=== PATIENT | male | born 1995 | race Caucasian/White ===

== ENCOUNTER 2016-10-01 23:03 | Emergency (ER) | payer OTHER ==
[~2016-10-01] VITALS: Ht 180.3 cm; Wt 113.4 kg
[~2016-10-01 23:03] MED LIST: AVPAK AZITHROM250 MG PO; KEFLEX 500MG.500 MG PO
--- OUTSIDE RECORDS SUMMARY | 2016-10-01 23:21 | External Medical Summary Rpt ---
Author Author NIURKAJIM Preciado, [employer] Organization [employer] Address Unknown Phone Unavailable Results EK EKG 12 LEAD Observa Value Referen Units Interpr Notes Date tion ce etation Range Sinus No No No No Apr 25 arrhyth informa informa informa informa 2014 froylan\.br tion in tion in tion in tion in 11:49 \\.br\N source source source source PM ormal data data data data ECG XR KNEE LEFT AP LATERAL INTERNAL AND EXTERNAL OBLIQUES Observa Value Referen Units Interpr Notes Date tion ce etation Range TEXT XR KNEE No No No No Nov 20 DIAGNOS LEFT informa informa informa informa 2011 IS AP tion in tion in tion in tion in 9:47 PM BATTERY LATERAL source source source source data data data data INTERNA L AND EXTERNA L OBLIQUE S Nov 21, 201109: 54:11 PMHISTO RY: -LEG INJURYF aj views were taken.C omparis on is made to the previou s exam of June 02, 2009.No fractur e, joint effusio n or other signifi cant abnorma lity is seen.IM PRESSIO N: Normal left knee. XR TIBIA FIBULA RIGHT AP AND LATERAL Observa Value Referen Units Interpr Notes Date tion ce etation Range TEXT XR No No No No Nov 20 DIAGNOS TIBIA informa informa informa informa 2011 IS FIBULA tion in tion in tion in tion in 9:47 PM BATTERY RIGHT source source source source AP AND data data data data LATERAL Nov 21, 2011 09:47:3 1 PMHISTO RY: -LEG INJURYT wo views were taken.N o fractur e or other signifi cant abnorma lity is seen.IM PRESSIO N: Normal right tibia and fibula. XR ANKLE RIGHT AP LATERAL AND OBLIQUE Observa Value Referen Units Interpr Notes Date tion ce etation Range TEXT XR No No No No Nov 20 DIAGNOS ANKLE informa informa informa informa 2012 IS RIGHT tion in tion in tion in tion in 9:47 PM BATTERY AP source source source source LATERAL data data data data AND OBLIQUE Nov 21, 2011 09:47:3 1 PMHISTO RY: -LEG INJURYT hree views were taken.N o fractur e or other signifi cant abnorma lity is seen.IM PRESSIO N: Normal right ankle.
--- OUTSIDE RECORDS SUMMARY | 2016-10-01 23:21 | External Medical Summary Rpt ---
Author Author , BAKARI VILLEGAS Address Unknown Phone [email or web address] Care Team Providers Care Stonemason Helper Name Role Phone [facility] # [id number], Unavailable Unavailable [facility] # [id number] [facility] Unavailable Unavailable [facility], [facility] Un[facility] TY VIRIDIANA, TY Unavailable Unavailable VIRIDIANA TY VIRIDIANA, TY Unavailable Unavailable VIRIDIANA LOVE, JOYCELYN A, Unavailable Unavailable LOVE JOYCELYN A SERGIO R H, Unavailable Unavailable SERGIO R H SERGIO R H, Unavailable Unavailable SERGIO R Lisbeth SCOTT, Unavailable Unavailable Lisbeth HILL Purpose Continuity of Care Document - 05-20-2009 through 2016 Problems Code Diagnosis DOS Provider Status 39335 UNSPECIFIED 12-20-2011 SERGIO R ACUTE H NONSUPPURAT [facility]IT[facility] MEDIA 45386 UNSPECIFIED 08-09-2011 TY VIRIDIANA ASTIGMATISM 7241 PAIN IN 06-17-2011 [facility] 7248 OTHER 06-17-2011 [facility] TO BACK 8470 NECK SPRAIN 06-17-2011 [facility] 13250 UNSPECIFIED 05-19-2011 SERGIO R INFECTIVE H OTITIS EXTERNA 1129 CANDIDIASIS 02-10-2011 SERGIO R OF H UNSPECIFIED SITE 3829 UNSPECIFIED 02-08-2011 SERGIO R OTITIS H MEDIA 6929 CONTACT 04-27-2010 [facility] OTHER [place] DUE UNSPEC CAUSE 460 ACUTE 04-12-2010 [facility] ITIS 0088 INTESTINAL 12-17-2009 [facility] DUE TO OTHER ORGANISM NEC 4619 ACUTE 10-21-2009 [facility] UNSPECIFIED V202 ROUTINE 10-06-2009 [facility] INF[facility] CHILD HEALTH CHECK 8408 SPRAIN&STRA 06-02-2009 EMERGENCY IN OTH SPEC CARE PHYS SITES [facility] SHOULDER&UP PER ARM 9160 HIP THI 06-02-2009 EMERGENCY LEG&ANK CARE PHYS ABRASION/FR [facility] ICION BURN W/O INF 24727 CONTUSION 06-02-2009 EMERGENCY OF KNEE CARE PHYS [facility] V714 OBSERVATION 06-02-2009 EMERGENCY FOLLOWING CARE PHYS OTHER [facility] ACCIDENT Medications Na ND Rx Da Fi Fi Am Da Di Ph RX Ph St me C No te ll ll ou ys ag ar # ys at rm s nt no ma ic us Or Da si cy ia de te s n re d ME 59 02 02 0 21 6 CV 56 CO Ac TH 74 -2 -2 .0 S 17 OP ti YL 60 2- 2- 00 PH 68 ER ve TX 00 20 20 AR ED 10 11 11 MA ZULLY NI 3 CY HN SO # G LO NE 05 4 43 7 MG DO SE PK CE 68 02 02 0 20 10 CV 55 CO Ac FD 18 -0 -0 .0 S 98 OP ti IN 00 7- 7- 00 PH 47 ER ve IR 71 20 20 AR 16 11 11 MA ZULLY 30 0 CY HN 0 # G MG 05 CA 43 PS 7 UL E 59 08 08 0 10 10 CV 54 KE Ac 76 -1 -1 .0 S 08 AG ti 22 8- 8- 00 PH 42 LE ve 18 20 20 AR 00 10 10 MA RI 1 CY TA # K 05 43 7 CI 13 05 08 5 15 30 CV 53 CO Ac TA 66 -0 -1 .0 S 01 OP ti LO 80 4- 8- 00 PH 97 ER ve TX 01 20 20 AR AM 10 10 10 MA ZULLY 5 CY HN HB # G R 40 05 43 MG 7 TA BL ET 59 06 06 0 20 10 CV 53 KE Ac 76 -1 -1 .0 S 45 AG ti 22 5- 5- 00 PH 16 LE ve 18 20 20 AR 00 10 10 MA RI 1 CY TA # K 05 43 7 CI 00 05 05 5 15 30 CV 53 CO Ac TA 90 -0 -0 .0 S 01 OP ti LO 46 4- 4- 00 PH 97 ER ve TX 08 20 20 AR AM 66 10 10 MA ZULLY 1 CY HN HB # G R 40 05 43 MG 7 TA BL ET CI 13 04 04 2 15 30 CV 52 KE Ac TA 66 -0 -0 .0 S 72 AG ti LO 80 6- 6- 00 PH 66 LE ve TX 01 20 20 AR AM 00 10 10 MA RI 5 CY TA HB # K R 20 05 43 MG 7 TA BL ET Procedures Procedure DOS Code Location Performer Comment DETERMINA 30962 TY TY TION 2 Sep REFRACTIV E STATE OPHTH 36079 [facility] 2 Sep XM&EVAL COMPRE NEW PT 1/> [place] [address] [facility] 1/> AREAS 2 [facility]OP[facility] EACH 15 TIC TIC MIN CENTER CENTER NEUROMUSC REEDUCA CHIROPRAC 80978 [facility] TIC 2 CH[facility]AC CHIROPRAC MANIPULAT TIC TIC [facility] CENTER SPINAL 3-4 REGIONS APPL 88820 [facility] MODALITY 2 CH[facility]OP[facility] CHIROP[facility]AC 1/> AREAS TIC TIC ELEC CENTER CENTER STIMJ UNATTENDE D APPL 40669 [facility] MODALITY 2 CH[facility]OP[facility]AC CHIROPRAC 1/> AREAS TIC TIC ELEC CENTER CENTER STIMJ UNATTENDE D CHIROPRAC 94281 [facility] TIC 2 CHIROPRAC CHIROPRAC MANIPULAT TIC TIC [facility] CENTER SPINAL 3-[place] [address] [facility] 1/> AREAS 2 CHIROPRAC CHIROPRAC EACH 15 TIC TIC MIN CENTER CENTER NEUROMUSC REEDUCA APPLICATI 40668 [facility] ON 2 [facility]OP[facility] MODALITY TIC TIC 1/> AREAS CENTER CENTER HOT/COLD PACKS URNLS DIP 53388 SERGIO SERGIO 1 R H R H STICK/TAB LET RGNT NON-AUTO W/O MICRSCP BLOOD 41955 FAMILY SERGIO COUNT 0 CARE R H COMPLETE ASSOCIATE AUTO&AUTO S DIFRNTL WBC Encounters Encounter Start End Date Code Location Performer Type Date OFFICE 12226 SERGIO SERGIO OUTPATIEN 2 2 R H R H T VISIT 15 MINUTES OFFICE 10179 [facility] 2 2 [facility]OP[facility] T NEW 30 TIC MINUTES CENTER OFFICE 24015 SERGIO SERGIO OUTPATIEN 2 2 R H R H T VISIT 15 MINUTES OFFICE 33386 SERGIO SERGIO OUTPATIEN 1 1 R H R H T VISIT 15 MINUTES OFFICE 29714 SERGIO SERGIO OUTPATIEN 1 1 R H R H T VISIT 15 MINUTES OFFICE 54674 [facility] SERGIO OUTPATIEN 1 1 CARE R H T VISIT ASSOCIATE 15 S MINUTES OFFICE 32896 [facility] SERGIO OUTPATIEN 1 1 CARE R H T VISIT ASSOCIATE 15 S MINUTES OFFICE 14832 FAMILY OUTPATIEN 0 0 CARE T VISIT ASSOCIATE 15 S MINUTES OFFICE 60497 FAMILY SERGIO OUTPATIEN 0 0 CARE R H T VISIT ASSOCIATE 15 S MINUTES PERIODIC 95891 FAMILY SER[facility]IO PREVENTIV 0 0 CARE R H E MED EST ASSOCIATE PATIENT S EMERGENCY 79556 EMERGENCY LOVE, 0 0 CARE JOYCELYN FRANCOISMEN PHYS T VISIT [facility] [place] SEVERITY OFFICE 81378 FAMILY SERGIO, OUTPATIEN 0 0 CARE R KATHERINE T VISIT ASSOCIATE 15 S MINUTES
--- OUTSIDE RECORDS SUMMARY | 2016-10-01 23:21 | External Medical Summary Rpt ---
Demographics Preferred Language Maltese Marital Status Unknown Anabaptist Affiliation Unknown Race Unknown Ethnic Group Unknown Author Author , BAKARI VILLEGAS Address Unknown Phone Immunization Unable to retrieve immunization data due to connection failure with Immunization Registry. Please try again later.
--- OUTSIDE RECORDS SUMMARY | 2016-10-01 23:21 | External Medical Summary Rpt ---
Author Author , BAKARI VILLEGAS Address Unknown Phone [email or web address] Care Team Providers Care Charge Entry Name Role Phone [facility] # [id number], Unavailable Unavailable [facility] # [id number] [facility] Unavailable Unavailable CENTER, [facility] Unavailable Unavailable [facility], [facility] [...] 2016 Problems Code Diagnosis DOS Provider Status 73757 UNSPECIFIED 12-20-2011 SERGIO R ACUTE H NONSUPPURAT [facility] OTITIS MEDIA 74728 UNSPECIFIED 08-09-2011 TY VIRIDIANA ASTIGMATISM 7241 PAIN IN 06-17-2011 [facility] 7248 OTHER 06-17-2011 [facility] TO BACK 8470 NECK SPRAIN 06-17-2011 [facility] 94118 UNSPECIFIED 05-19-2011 SERGIO R INFECTIVE H OTITIS [...] EMERGENCY IN OTH SPEC CARE PHYS SITES [facility] SHOULDER&UP PER ARM 9160 HIP THI 06-02-2009 EMERGENCY LEG&ANK CARE PHYS ABRASION/FR [facility] ICION BURN W/O INF 47164 CONTUSION 06-02-2009 EMERGENCY OF KNEE CARE PHYS [facility] V714 OBSERVATION 06-02-2009 EMERGENCY FOLLOWING CARE PHYS OTHER [facility] ACCIDENT Medications Na ND Rx Da [...] 2- 2- 00 PH 68 ER ve NC 00 20 20 AR ED 10 11 [...] 4- 8- 00 PH 97 ER ve NC 01 20 20 AR AM 10 10 [...] 4- 4- 00 PH 97 ER ve NC 08 20 20 AR AM 66 10 10 MA ZULLY 1 CY HN HB # G R 40 05 43 MG 7 TA BL ET CI 13 04 04 2 15 30 CV 52 KE Ac TA 66 -0 -0 .0 S 72 AG ti LO 80 6- 6- 00 PH 66 LE ve NC 01 20 20 AR AM 00 10 10 MA RI 5 CY TA HB # K R 20 05 43 MG 7 TA BL ET Procedures Procedure DOS Code Location Performer Comment DETERMINA 64096 TY TY TION 2 Sep REFRACTIV E STATE OPHTH 18140 TY TY MEDICAL 2 Sep XM&EVAL COMPRE NEW PT 1/> [place] [address] [facility] 1/> AREAS 2 CHIROPRAC CHIROPRAC EACH 15 TIC TIC MIN CENTER CENTER NEUROMUSC REEDUCA CHIROPRAC 97965 [facility] TIC 2 CHIROPRAC CHIROPRAC MANIPULAT TIC TIC [facility] CENTER SPINAL 3-4 REGIONS APPL 30824 [facility] MODALITY 2 [facility]AC 1/> AREAS TIC TIC ELEC CENTER CENTER STIMJ UNATTENDE D APPL 12081 [facility] MODALITY 2 CH[facility]OP[facility]AC CH[facility]OP[facility]AC 1/> AREAS TIC TIC ELEC CENTER CENTER STIMJ UNATTENDE D CHIROPRAC 90131 [facility] TIC 2 CHIROPRAC CHIROPRAC MANIPULAT TIC TIC [facility] CENTER SPINAL 3-[place] [address] [facility] 1/> AREAS 2 CHIROPRAC CHIROPRAC EACH 15 TIC TIC MIN CENTER CENTER NEUROMUSC REEDUCA APPLICATI 11550 [facility] ON 2 CHIROPRAC CHIROPRAC MODALITY TIC TIC 1/> AREAS CENTER CENTER HOT/COLD PACKS URNLS DIP 89400 SERGIO SERGIO 1 R H R H STICK/TAB LET RGNT NON-AUTO W/O MICRSCP BLOOD 05545 FAMILY SERGIO COUNT 0 CARE R H COMPLETE ASSOCIATE AUTO&AUTO S DIFRNTL WBC Encounters Encounter Start End Date Code Location Performer Type Date OFFICE 01509 SERGIO SERGIO OUTPATIEN 2 2 R H R H T VISIT 15 MINUTES OFFICE 27927 [facility] 2 2 [facility] T NEW 30 TIC MINUTES CENTER OFFICE 31401 SERGIO SERGIO OUTPATIEN 2 2 R H R H T VISIT 15 MINUTES OFFICE 38264 SER[facility] SERGIO OUTPATIEN 1 1 R H R H T VISIT 15 MINUTES OFFICE 42172 SERGIO SERGIO OUTPATIEN 1 1 R H R H T VISIT 15 MINUTES OFFICE 22842 [facility] SER[facility]IO OUTPATIEN 1 1 CARE R H T VISIT ASSOCIATE 15 S MINUTES OFFICE 66956 FAMILY SERGIO OUTPATIEN 1 1 CARE R H T VISIT ASSOCIATE 15 S MINUTES OFFICE 10265 FAMILY OUTPATIEN 0 0 CARE T VISIT ASSOCIATE 15 S MINUTES OFFICE 42377 FAMILY SERGIO OUTPATIEN 0 0 CARE R H T VISIT ASSOCIATE 15 S MINUTES PERIODIC 43854 FAMILY SER[facility]IO PREVENTIV 0 0 CARE R H E MED EST ASSOCIATE PATIENT S EMERGENCY 73825 EMERGENCY LOVE, 0 0 CARE JOYCELYN FRANCOISMEN PHYS T VISIT [facility] [place] SEVERITY OFFICE 75083 FAMILY SERGIO, OUTPATIEN 0 0 CARE R KATHERINE T VISIT ASSOCIATE 15 S MINUTES
--- OUTSIDE RECORDS SUMMARY | 2016-10-01 23:21 | External Medical Summary Rpt ---
Author Author , BAKARI VILLEGAS Address Unknown Phone [email or web address] Care Team Providers Care Dining Room Supervisor Name Role Phone [facility] # [id number], Unavailable Unavailable [facility] # [id number] [facility] Unavailable Unavailable CENTER, [facility] Unavailable [facility], [facility] TY VIRIDIANA, TY Unavailable Unavailable VIRIDIANA TY VIRIDIANA, TY Unavailable Unavailable VIRIDIANA LOVE, JOYCELYN A, Unavailable Unavailable LOVE, JOYCELYN A SERGIO R H, Unavailable Unavailable SERGIO R H SERGIO R H, Unavailable Unavailable SERGIO R Lisbeth SCOTT, Unavailable Unavailable Lisbeth HILL Purpose Continuity of Care Document - 05-20-2009 through 2016 Problems Code Diagnosis DOS Provider Status 37383 UNSPECIFIED 12-20-2011 SERGIO R ACUTE H NONSUPPURAT [facility] OTITIS MEDIA 50483 UNSPECIFIED 08-09-2011 TY VIRIDIANA ASTIGMATISM 7241 PAIN IN 06-17-2011 [facility] 7248 OTHER 06-17-2011 [facility] TO BACK 8470 NECK SPRAIN 06-17-2011 [facility] 07709 UNSPECIFIED 05-19-2011 SERGIO R INFECTIVE H OTITIS EXTERNA 1129 CANDIDIASIS 02-10-2011 SERGIO R OF H UNSPECIFIED SITE 3829 UNSPECIFIED 02-08-2011 SERGIO R OTITIS H MEDIA 6929 CONTACT 04-27-2010 [facility] OTHER [place] DUE UNSPEC CAUSE 460 ACUTE 04-12-2010 [facility] NASOPHARYNG ASS[facility] ITIS 0088 INTESTINAL 12-17-2009 [facility] INFECTION [facility] DUE TO OTHER ORGANISM NEC 4619 ACUTE 10-21-2009 [facility]US[facility]IS[facility] UNSPECIFIED V202 ROUTINE 10-06-2009 [facility] OR [facility] CHILD HEALTH CHECK 8408 SPRAIN&STRA 06-02-2009 EMERGENCY IN OTH SPEC CARE PHYS SITES [facility] SHOULDER&UP PER ARM 9160 HIP THI 06-02-2009 EMERGENCY LEG&ANK CARE PHYS ABRASION/FR [facility] ICION BURN W/O INF 12452 CONTUSION 06-02-2009 EMERGENCY OF KNEE CARE PHYS [facility] V714 OBSERVATION 06-02-2009 EMERGENCY FOLLOWING CARE PHYS OTHER [facility] ACCIDENT Medications Na ND Rx Da [...] 2- 2- 00 PH [address] 00 20 20 AR ED 10 11 11 MA ZULYL NI 3 CY HN SO # G [...] 4- 8- 00 PH [address] 01 20 20 AR AM 10 10 [...] 4- 4- 00 PH [address] 08 20 20 AR AM 66 10 10 MA ZULLY 1 CY HN HB # G R 40 05 43 MG 7 TA BL ET CI 13 04 04 2 15 30 CV 52 KE Ac TA 66 -0 -0 .0 S 72 AG ti LO 80 6- 6- 00 PH [address] 01 20 20 AR AM 00 10 10 MA RI 5 CY TA HB # K R 20 05 43 MG 7 TA BL ET Procedures Procedure DOS Code Location Performer Comment OPH 71661 TY TY MEDICAL 2 Sep XM&EVAL COMPRE NEW PT 1/> VST [place] 00120 TY TY TION 2 Sep REFRACTIV E STATE APPL 88339 [facility] MODALITY 2 CHIROPRAC CHIROPRAC 1/> AREAS TIC TIC ELEC CENTER [place] [address] [facility] 1/> AREAS 2 CHIROPRAC CHIROPRAC EACH 15 TIC TIC MIN CENTER CENTER NEUROMUSC REEDUCA CHIROPRAC 74705 [facility] TIC 2 CHIROPRAC CHIROPRAC MANIPULAT TIC TIC [facility] C[facility] SPINAL 3-4 [facility] APPL 31636 [facility] MODALITY 2 CH[facility]OPRAC CHIROPRAC 1/> AREAS TIC TIC ELEC CENTER [place] [address] [facility] 1/> AREAS 2 CHIROPRAC CHIROPRAC EACH 15 TIC TIC MIN CENTER CENTER NEUROMUSC REEDUCA APPLICATI 86138 [facility] ON 2 CHIROPRAC CHIROPRAC MODALITY TIC TIC 1/> AREAS CENTER CENTER HOT/COLD PACKS CHIROPRAC 26148 [facility] TIC 2 CHIROPRAC CHIROPRAC MANIPULAT TIC TIC [facility] CENTER SPINAL 3-4 [facility] URNLS DIP 00930 SERGIO SERGIO 1 R H R H STICK/TAB LET RGNT NON-AUTO W/O MICRSCP BLOOD 07698 FAMILY SERGIO COUNT 0 CARE R H COMPLETE ASSOCIATE AUTO&AUTO S DIFRNTL WBC Encounters Encounter Start End Date Code Location Performer Type Date OFFICE 14032 SERGIO SERGIO OUTPATIEN 2 2 R H R H T VISIT 15 MINUTES OFFICE 27068 [facility] 2 2 CHIROPRAC T NEW 30 TIC MINUTES CENTER OFFICE 38325 SERGIO SERGIO OUTPATIEN 2 2 R H R H T VISIT 15 MINUTES OFFICE 16789 SERGIO SERGIO OUTPATIEN 1 1 R H R H T VISIT 15 MINUTES OFFICE 63048 SERGIO SERGIO OUTPATIEN 1 1 R H R H T VISIT 15 MINUTES OFFICE 66754 [facility]ILY SERGIO OUTPATIEN 1 1 CARE R H T VISIT ASSOCIATE 15 S MINUTES OFFICE 68125 FAMILY SERGIO OUTPATIEN 1 1 CARE R H T VISIT ASSOCIATE 15 S MINUTES OFFICE 42629 FAMILY OUTPATIEN 0 0 CARE T VISIT ASSOCIATE 15 S MINUTES OFFICE 84775 FAMILY SERGIO OUTPATIEN 0 0 CARE R H T VISIT ASSOCIATE 15 S MINUTES PERIODIC 55900 FAMILY SERGIO PREVENTIV 0 0 CARE R H E MED EST ASSOCIATE PATIENT S EMERGENCY 02796 EMERGENCY LOVE, 0 0 CARE JOYCELYN A DEPARTMEN PHYS T VISIT [facility] [place] SEVERITY OFFICE 76278 FAMILY SERGIO, OUTPATIEN 0 0 CARE R KATHERINE T VISIT ASSOCIATE 15 S MINUTES
--- OUTSIDE RECORDS SUMMARY | 2016-10-01 23:21 | External Medical Summary Rpt ---
Author Author , BAKARI VILLEGAS Address Unknown Phone [email or web address] Care Team Providers Care Gear Nicker Name Role Phone [facility] # [id number], Unavailable Unavailable [facility] # 96408 [facility] Unavailable Unavailable CENTER, [facility] Unavailable Unavailable ASSOC[facility], [facility] [...] 2016 Problems Code Diagnosis DOS Provider Status 14422 UNSPECIFIED 12-20-2011 SERGIO R ACUTE H NONSUPPURAT [facility] OTITIS MEDIA 51117 UNSPECIFIED 08-09-2011 TY VIRIDIANA ASTIGMATISM 7241 PAIN IN 06-17-2011 [facility] 7248 OTHER 06-17-2011 [facility] TO BACK 8470 NECK SPRAIN 06-17-2011 [facility] 27584 UNSPECIFIED 05-19-2011 SERGIO R INFECTIVE H OTITIS EXTERNA 1129 CANDIDIASIS 02-10-2011 SERGIO R OF H UNSPECIFIED SITE 3829 UNSPECIFIED 02-08-2011 SERGIO R OTITIS H MEDIA 6929 CONTACT 04-27-2010 [facility] OTHER [place] DUE UNSPEC CAUSE 460 ACUTE 04-12-2010 [facility] NASOPHARYNG ASS[facility] ITIS 0088 INTESTINAL 12-17-2009 [facility]FE[facility] DUE TO OTHER ORGANISM NEC 4619 ACUTE 10-21-2009 [facility]US[facility] UNSPECIFIED V202 ROUTINE 10-06-2009 [facility] CHILD HEALTH CHECK 8408 SPRAIN&STRA 06-02-2009 EMERGENCY IN OTH SPEC CARE PHYS SITES [facility] SHOULDER&UP PER ARM 9160 HIP THI 06-02-2009 EMERGENCY LEG&ANK CARE PHYS ABRASION/FR [facility] ICION BURN W/O INF 95308 CONTUSION 06-02-2009 EMERGENCY OF KNEE CARE PHYS [facility] V714 OBSERVATION 06-02-2009 EMERGENCY FOLLOWING CARE PHYS OTHER [facility] ACCIDENT Medications Na ND Rx Da Fi [...] 2- 2- 00 PH 68 ER ve CO 00 20 20 AR ED 10 11 [...] 4- 8- 00 PH 97 ER ve CO 01 20 20 AR AM 10 10 [...] 4- 4- 00 PH 97 ER ve CO 08 20 20 AR AM 66 10 10 MA ZULLY 1 CY HN HB # G R 40 05 43 MG 7 TA BL ET CI 13 04 04 2 15 30 CV 52 KE Ac TA 66 -0 -0 .0 S 72 AG ti LO 80 6- 6- 00 PH 66 LE ve CO 01 20 20 AR AM 00 10 10 MA RI 5 CY TA HB # K R 20 05 43 MG 7 TA BL ET Procedures Procedure DOS Code Location Performer Comment OPH 82218 TY TY MEDICAL 2 Sep XM&EVAL COMPRE NEW PT 1/> VST [place] 75530 TY TY TION 2 Sep REFRACTIV E STATE APPL 25716 [facility] MODALITY 2 CHIROPRAC CHIROPRAC 1/> AREAS TIC TIC ELEC CENTER [place] [address] [facility] 1/> AREAS 2 CHIROPRAC CHIROPRAC EACH 15 TIC TIC MIN CENTER CENTER NEUROMUSC REEDUCA CHIROPRAC 38990 [facility] TIC 2 CHIROPRAC CHIROPRAC MANIPULAT TIC TIC [facility] CENTER SPINAL 3-4 REGIONS APPL 17305 [facility] MODALITY 2 CHIROPRAC CHIROPRAC 1/> AREAS TIC TIC ELEC C[place] [address] [facility] 1/> AREAS 2 CHIROPRAC CHIROPRAC EACH 15 TIC TIC MIN CENTER CENTER NEUROMUSC REEDUCA APPLICATI 98838 [facility] ON 2 CHIROPRAC CHIROPRAC MODALITY TIC TIC 1/> AREAS CENTER CENTER HOT/COLD PACKS CHIROPRAC 43088 [facility] TIC 2 CHIROPRAC CHIROPRAC MANIPULAT TIC TIC [facility] CENTER SPINAL 3-4 [facility] URNLS DIP 97601 SERGIO SERGIO 1 R H R H STICK/TAB LET RGNT NON-AUTO W/O MICRSCP BLOOD 11154 FAMILY SERGIO COUNT 0 CARE R H COMPLETE ASSOCIATE AUTO&AUTO S DIFRNTL WBC Encounters Encounter Start End Date Code Location Performer Type Date OFFICE 27078 SERGIO SERGIO OUTPATIEN 2 2 R H R H T VISIT 15 MINUTES OFFICE 27994 [facility] 2 2 CHIROPRAC T NEW 30 TIC MINUTES CENTER OFFICE 96583 SERGIO SERGIO OUTPATIEN 2 2 R H R H T VISIT 15 MINUTES OFFICE 92978 [facility] SERGIO OUTPATIEN 1 1 R H R H T VISIT 15 MINUTES OFFICE 30417 SERGIO SERGIO OUTPATIEN 1 1 R H R H T VISIT 15 MINUTES OFFICE 85726 [facility]ILY SERGIO OUTPATIEN 1 1 CARE R H T VISIT ASSOCIATE 15 S MINUTES OFFICE 88574 [facility] SERGIO OUTPATIEN 1 1 CARE R H T VISIT ASSOCIATE 15 S MINUTES OFFICE 01039 FAMILY OUTPATIEN 0 0 CARE T VISIT ASSOCIATE 15 S MINUTES OFFICE 61480 FAMILY SERGIO OUTPATIEN 0 0 CARE R H T VISIT ASSOCIATE 15 S MINUTES PERIODIC 72927 FAMILY SERGIO PREVENTIV 0 0 CARE R H E MED EST ASSOCIATE PATIENT S EMERGENCY 17698 EMERGENCY LOVE, 0 0 CARE JOYCELYN A DEPARTMEN PHYS T VISIT [facility] [place] SEVERITY OFFICE 46259 FAMILY SERGIO, OUTPATIEN 0 0 CARE R KATHERINE T VISIT ASSOCIATE 15 S MINUTES
--- OUTSIDE RECORDS SUMMARY | 2016-10-01 23:21 | External Medical Summary Rpt ---
Demographics Preferred Language Vietnamese Marital Status Unknown Shinto Affiliation Unknown Race Unknown Ethnic Group Unknown Author Author , BAKARI VILLEGAS Address Unknown Phone Immunization Unable to retrieve immunization data due to connection failure with Immunization Registry. Please try again later.
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
[2016-10-02 00:44] VITALS: BP 153/79
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
== END 2016-10-02 00:44 | disposition home or self-care (01) ==
LOC: ER 23:03
DX: S70.12XA Contusion of left thigh, initial encounter (principal); S39.012A Strain of muscle, fascia and tendon of lower back, initial encounter; M54.5 Low back pain; V89.2XXA Person injured in unspecified motor-vehicle accident, traffic, initial encounter; Y03.8XXA Other assault by crashing of motor vehicle, initial encounter